=== PATIENT | male | born 1990 | race Caucasian/White ===

== ENCOUNTER 2018-05-10 12:32 | Emergency (ER) | payer SELFPAY ==
[~2018-05-10] VITALS: Ht 180.3 cm; Wt 81.6 kg
[~2018-05-10 12:32] MED LIST: CEPH500C PO; DOXY100T2 PO
--- OUTSIDE RECORDS SUMMARY | 2018-05-10 13:09 | XMS REPORT ---
Author Author NAEEM BANGURA Organization [facility] Address [address] [place] [address] Care Team Providers Care Welder Setter Resistance Machine Name Role Phone NAEEM BANGURA Unavailable PROBLEMS Unknown Problems ALLERGIES No Known Allergies SOCIAL HISTORY Never Assessed PLAN OF CARE Activity Details Follow Up prn Reason: VITAL SIGNS Height 71 in 2016-09-15 Weight 160 lbs 2016-09-15 Temperature 98.3 degrees Fahrenheit 2016-09-15 Heart Rate 84 bpm 2016-09-15 Respiratory Rate 20 2016-09-15 BMI 22.31 kg/m2 2016-09-15 Blood pressure systolic 112 mmHg 2016-09-15 Blood pressure diastolic 72 mmHg 2016-09-15 MEDICATIONS Medication Instructions Dosage Frequency Start Date End Date Duration Status Pulmicort Flexhaler 180 MCG/ACT Inhalation Twice a day 1 puff 12h Sep, Active PredniSONE 50 mg Orally Once a day 1 tablet 24h Sep, Sep, 05 days Active Azithromycin 250 MG Orally Once a day 2 tablets on the first day, then 1 tablet daily for 4 days 24h Sep, Sep, 5 day(s) Active RESULTS No Results PROCEDURES No Known procedures IMMUNIZATIONS No Known Immunizations MEDICAL (GENERAL) HISTORY Type Description Date Medical History Asthma Surgical History Tonsilectomy Surgical History left femur surgery 03/27/2017 Hospitalization History post surgery 03/27/2017
--- OUTSIDE RECORDS SUMMARY | 2018-05-10 13:09 | XMS REPORT | Clinical Summary ---
Demographics Preferred Language Unknown Marital Status Unknown Yarsani Affiliation Unknown Race Unknown Ethnic Group Unknown Author Author [facility] Organization [facility] Address Unknown Phone Unavailable Care Team Providers Care Computer Patternmaker Name Role Phone PP Unavailable Allergies Not on File Current Medications Not on file Active Problems Not on file Social History Tobacco Use Types Packs/Day Years Used Date Never Assessed Sex Assigned at Date Recorded Not on file Plan of Treatment Health Maintenance Due Date Last Done Comments Hepatitis C Screening 1961 DTaP,Tdap,and Td Vaccines 1980 (1 - Tdap) Colon Cancer Screening 2011 Zoster Recombinant 2011 Vaccine (RZV,Shingrix) (1 of 2 - [facility] 2 Dose Standard) Influenza Vaccine (#1) 2018 Results Not on filefrom Last 3 Months
--- OUTSIDE RECORDS SUMMARY | 2018-05-10 13:09 | XMS REPORT ---
Author Author SARAH BETH Organization [facility] Address [address] [place] [address] Care Team Providers Care Machine Sweeper Brush Maker Name Role Phone SARAH BETH Unavailable PROBLEMS Unknown Problems ALLERGIES No Known Allergies ENCOUNTERS Encounter Location Date Diagnosis [facility] [address] [facility] [id number] [address] Apr, Thrush B37.[address] [facility] [address] [facility] [id number] [address] Sep, Asthma exacerbation J45.901 and Acute nasopharyngitis J00 IMMUNIZATIONS No Known Immunizations SOCIAL HISTORY Never Assessed REASON FOR VISIT rash on the roof of his mouth and tongue for 6 days. nausea for 2 days. pt is on new meds post op. [email or web address] PLAN OF CARE VITAL SIGNS Height 71 in 2017-04-09 Weight 157.4 lbs 2017-04-09 Temperature 98.0 degrees Fahrenheit 2017-04-09 Heart Rate 88 bpm 2017-04-09 Respiratory Rate 20 2017-04-09 BMI 21.95 kg/m2 2017-04-09 Blood pressure systolic 110 mmHg 2017-04-09 Blood pressure diastolic 76 mmHg 2017-04-09 MEDICATIONS Medication Instructions Dosage Frequency Start Date End Date Duration Status Cyclobenzaprine HCl 10 MG Orally Three times a day 1 tablet as needed 8h Active Pulmicort Flexhaler 180 MCG/ACT Inhalation Twice a day 1 puff 12h Sep, Active ASA 1 tab Active Nystatin 820255 UNIT/ML Mouth/Throat Four times a day 5 ml 6h Apr, May, 30 day(s) Active Zofran 4 MG Orally 3 times a day 1 tablet 8h Apr, Active Oxycodone-Acetaminophen 5-325 MG Orally every 6 hrs 1 tablet as needed 6h Active Docusate Calcium 240 MG Orally Once a day 1 capsule as needed 24h Active RESULTS No Results PROCEDURES No Known procedures INSTRUCTIONS MEDICATIONS ADMINISTERED No Known Medications MEDICAL (GENERAL) HISTORY Type Description Date Medical History Asthma Surgical History Tonsilectomy Surgical History left femur surgery 03/27/2017 Hospitalization History post surgery 03/27/2017
--- OUTSIDE RECORDS SUMMARY | 2018-05-10 13:09 | XMS REPORT | Continuity of Care Document ---
Demographics x Preferred Language Unknown Marital Status Unknown Yazdanism Affiliation Unknown Race Unknown Ethnic Group Unknown Author Author [facility] Organization [facility] Address Unknown Phone Unavailable Allergies Active Description Code Type Severity Reaction Onset Reported/Identified Relationship to Patient Clinical Status Yes NO KNOWN DRUG ALLERGIES UNKNOWN NO KNOWN DRUG ALLERG Yes No Known Drug Allergies [id number] Drug Allergy Unknown N/A 02/02/2014 Medications Medication Packaging Start Date Stop Date Route Dosage Sig FENTANYL INJ 100 MCG/2CC VIAL MCG 03/26/2017 03/26/2017 ONCE&1255 NORMAL SALINE 1000CC IV BAG INJ 0.9 % (NS 1000CC IV BAG) ml 03/26/2017 03/26/2017 ONCE&1256 FENTANYL INJ 100 MCG/2CC VIAL MCG 03/26/2017 03/26/2017 ONCE&1412 FENTANYL INJ 100 MCG/2CC VIAL MCG 03/26/2017 03/26/2017 ONCE&1432 Problems Date Dx Coded Attending Type Code Diagnosis Diagnosed By 02/02/2014 ORVILLE LOPEZ MD Ot 882.0 OPEN WOUND OF HAND 02/02/2014 ORVILLE LOPEZ MD Ot E019.9 OTHER ACTIVITY INVOLVING ANIMAL CARE 02/02/2014 ORVILLE LOPEZ MD Ot E920.8 ACC-CUTTING INSTRUM NEC 02/02/2014 ORVILLE LOPEZ MD Ot V06.1 [id number], COMBINED [ 01/21/2016 ISAAC ORTIZ APRN Ot J02.9 ACUTE PHARYNGITIS, UNSPECIFIED 01/21/2016 ISAAC ORTIZ APRN Ot R50.9 FEVER, UNSPECIFIED 01/22/2016 ISAAC ORTIZ APRN Ot J02.9 ACUTE PHARYNGITIS, UNSPECIFIED 01/22/2016 ISAAC ORTIZ APRN Ot R50.9 FEVER, UNSPECIFIED 02/06/2016 ISAAC ORTIZ APRN Ot J02.9 ACUTE PHARYNGITIS, UNSPECIFIED 02/06/2016 ISAAC ORTIZ APRN Ot R50.9 FEVER, UNSPECIFIED 01/26/2017 Brooklynn Mcintosh 813.42 OTHER CLOSED FRACTURES OF DISTAL END OF RADIUS (ALONE) 01/26/2017 Brooklynn Mcintosh Mickie S52.502A UNSP FRACTURE OF THE LOWER END OF LEFT RADIUS, INIT 03/26/2017 Isaac Ortiz 820.22 FRACTURE OF SUBTROCHANTERIC SECTION OF FEMUR, CLOSED 03/26/2017 Isaac Ortiz S72.25XA NONDISPLACED SUBTROCHANTERIC FRACTURE OF LEFT FEMUR, INIT Procedures There is no data. Results Test Result Range Comprehensive Metabolic Panel - 03/26/17 12:54 Albumin 4.8 g/dL 3.6-5.1 ALP 68 U/L 35-130 ALT 15 U/L 6-45 Anion Gap 14 6-14 AST 15 U/L 2-40 BUN 18 mg/dL 5-25 Calcium 9.7 mg/dL 8.3-10.4 Chloride 109 mmol/L 95-114 CO2 22 mEq/L 22-33 Creat 1.19 mg/dL 0.50-1.50 eGFR 74 mL/min/1.73m2 >59 Globulin 2.9 g/dL 2.3-3.5 Glucose 85 mg/dL 70-110 Osmo 292 280-295 Potassium 3.9 mmol/L 3.5-5.3 Sodium 141 mmol/L 134-148 TBil 1.3 mg/dL 0.2-1.2 TP 7.7 g/dL 6.0-8.3 Encounters ACCT No. Visit Date/Time Discharge Status Pt. Type Provider Facility Loc./Unit Complaint [id number] 09/29/2013 13:30:00 09/29/2013 16:00:00 DIS Emergency MALCOM UMAÑA [facility] EMR [id number] 09/29/2013 13:40:05 ACT Document Registration [id number] 01/21/2016 19:02:00 01/21/2016 21:28:00 DIS Outpatient ISAAC ORTIZ APRN [facility] [id number] 02/02/2014 22:08:00 02/02/2014 22:36:00 DIS Emergency JOHN MALIK, ORVILLE Morrison [facility] [id number] 03/26/2017 12:37:00 03/26/2017 14:54:00 DIS Outpatient Ortiz, [facility] [id number] 02/18/2017 08:56:00 02/18/2017 23:59:00 DIS Outpatient JOSE REYES [id number] 01/26/2017 00:47:00 01/26/2017 01:41:00 DIS Outpatient Brooklynn Mcintosh [id number] 03/26/2017 12:55:29 Document Registration
--- OUTSIDE RECORDS SUMMARY | 2018-05-10 13:09 | XMS REPORT | CCD ---
Author Author LUZMA MONTANO Organization Unknown Address [address] [facility] [address] [place], [place] [address] Care Team Providers Care Petroleum Products District Supervisor Name Role Phone [facility], LIO DO Attphys [facility], LIO DO Prisurg Vital Signs Unknown or Not Available. Allergies Unknown or Not Available. Procedures Procedure Code Procedure Type Date HAND;MINIMUM 3VWS [id number] SNOMED CT 06/12/2014 History of Immunizations Unknown or Not Available. Problems Unknown or Not Available. Results Unknown or Not Available. Medications Unknown or Not Available. Medications Administered Unknown or Not Available. Encounters Encounter Diagnosis Diagnosis Code Start Date FX LOW RADIUS W ULNA-CL 75263 06/12/2014 Social History Smoking Status Code Start Date End Date Never smoker [id number] Patient Decision Aids Unknown or Not Available. Discharge Instructions You were admitted to [facility] on 06/12/2014 with a principal diagnosis of FX LOW RADIUS W ULNA-CL. You were discharged from [facility] on 06/12/2014. Should you have any questions prior to discharge, please contact a member of your healthcare team. If you have left the hospital and have any questions, please contact your primary care physician. Chief Complaint and Reason For Visit Chief Complaint Date of Onset HAND INJURY Function Status Unknown or Not Available. Referral/Transition of Care Unknown or Not Available.
--- NOTE | 2018-05-10 14:44 | Diagnostic Imaging Report ---
INDICATION: Right shoulder pain post injury. AP, oblique, and transscapular views of the right shoulder are obtained. No fracture or acute bony abnormality is seen. Joint spaces are unremarkable. IMPRESSION: Negative right shoulder. Dictated by: Dictated on workstation # [id number]
--- NOTE | 2018-05-10 15:02 | ED Upper Extremity ---
General Chief Complaint: Upper Extremity Stated Complaint: SHOULDER PAIN Nursing Triage Note: PT AMB TO ROOM 39 W/O DIFFICULTY. A&OX4. CO RT SHOULDER PAIN. 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 REPORTS CANT LIFT IT ABOVE HIS HEAD. LIMITED ROM NOTED. Nursing Sepsis Screen: No Definite Risk Source: patient Exam Limitations: no limitations History of Present Illness Date Seen by Provider: May 10, 2018 Time Seen by Provider: 15:50 Initial Comments Patient is a 28-year-old male who presents to the emergency room with complaints of right shoulder pain. 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 He has full range of motion in the arm but pain with range of motion. Onset: this morning Pain/Injury Location: right shoulder Method of Injury: direct blow Modifying Factors: Worse With Movement Allergies and Home Medications Allergies Coded Allergies: No Known Drug Allergies (Unverified , 02/02/14) Home Medications Doxycycline Hyclate 100 Mg Tablet, 100 MG PO BID Prescribed by: ISAAC EDMONDS on 01/21/16 2102 Hydrocodone Bit/Acetaminophen 1 Tab Tab, 1 EACH PO Q4-6HR PRN for PAIN-MODERATE Prescribed by: VELASQUEZ STEVENSON on 05/10/18 1505 Patient Home Medication List Home Medication List Reviewed: Yes Review of Systems Constitutional: see HPI; No chills, No fever Musculoskeletal: see HPI, joint pain (right shoulder pain) All Other Systems Reviewed Negative Unless Noted: Yes Past Vefajfs-Acwxpx-Xqkpzy Hx Past Med/Social Hx: Reviewed Nursing Past Med/Soc Hx Patient Social History Recent Foreign Travel: No Contact w/Someone Who Travel: No Recent Infectious Disease Expo: No Immunizations Up To Date Tetanus Booster (TDap): More than 5yrs Past Medical History Adenoidectomy, Tonsillectomy Asthma Reproductive Disorders: No Sexually Transmitted Disease: No HIV/AIDS: No Adverse Reaction/Blood Tranf: No Family Medical History Reviewed Nursing Family Hx Physical Exam Vital Signs Vital Signs - First Documented 05/10/18 13:48 Temp 97.1 Pulse 77 Resp 18 B/P (MAP) 141/103 (116) Pulse Ox 100 O2 Delivery Room Air Capillary Refill : Less Than 3 Seconds Height, Weight, BMI Height: 5'11.00" Weight: 180lbs. oz. 81.672068wk; BMI Method:Stated General Appearance: WD/WN, no apparent distress Neck: non-tender, full range of motion, supple, normal inspection Cardiovascular: normal peripheral pulses, regular rate, rhythm, no edema, no gallop, no JVD, no murmur Respiratory: chest non-tender, lungs clear, normal breath sounds, no respiratory distress, no accessory muscle use Shoulder: normal inspection, pain Neurologic/Tendon: normal sensation, normal motor functions, normal tendon functions, responds to pain, no evidence tendon injury, other (normal capillary refill.) Neurologic/Psychiatric: alert, normal mood/affect, oriented x 3 Skin: normal color, warm/dry Progress/Results/Core Measures Results/Orders My Orders Vital Signs/I&O Blood Pressure Mean: 116 Progress Progress Note : Time: 15:00 Progress Note I have seen and evaluated the patient. I have informed him of normal imaging studies. He agrees with plan of care, return precautions were given. Diagnostic Imaging Diagonstic Imaging: Xray Comments NAME: CHRISTOPHER TONY MED REC#: [id number] PHYSICIAN: VELASQUEZ STEVENSON CC: SONIA STEVENSON ROBERT A MD Page 1 of 1 RADIOLOGY REPORT [facility] [place] [place] CC: SONIA STEVENSON ROBERT A MD Page 1 of 1 RADIOLOGY REPORT NAME: CHRISTOPHER TONY MED REC#: [id number] PT STATUS: DEP ER : 1990 PHYSICIAN: VELASQUEZ STEVENSON ADMIT DATE: 05/10/18/ER Signed Date of Exam: 05/10/18 SHOULDER, RIGHT, 3 VIEWS INDICATION: Right shoulder pain post injury. AP, oblique, and transscapular views of the right shoulder are obtained. No fracture or acute bony abnormality is seen. Joint spaces are unremarkable. IMPRESSION: Negative right shoulder. Dictated by: Dictated on workstation # [id number] Dict: 05/10/18 1442 Trans: 05/10/18 1620 Interpreted by: UBALDO WOLF MD Electronically signed by: UBALDO WOLF MD 05/10/18 1620 Reviewed: Reviewed by Me Departure Impression Primary Impression: Right shoulder strain Disposition: 01 HOME, SELF-CARE Condition: Stable/Unchanged Departure-Patient Inst. Decision time for Depature: 15:03 Referrals: MARU PUENTE MD NO,LOCAL PHYSICIAN (PCP) Primary Care Physician Patient Instructions: How to Use a Shoulder Sling, LOCAL PHYSICIAN LIST, Shoulder Sprain Add. Discharge Instructions: Take medication as directed. Rest, elevate the arm as much as possible, ice to the sore areas a 20 minute intervals. You may use ibuprofen for additional pain relief as directed by the bottle. Follow-up with a primary care provider or an orthopedic surgeon within 1 week for recheck. Return back to the emergency room for any worsening symptoms or concerns as needed. All discharge instructions reviewed with patient and/or family. Voiced understanding. Scripts Hydrocodone Bit/Acetaminophen (Hydrocodone/Acetaminophen 5/325mg Tablet) 1 Tab Tab 1 EACH PO Q4-6HR PRN for PAIN-MODERATE MDD 10, #10 TAB Prov: VELASQUEZ STEVENSON 05/10/18 VELASQUEZ STEVENSON May 10, 2018 15:02
[2018-05-10] MEDS ORDERED: ACHD5005 PO (15:05)
[2018-05-10] MEDS ORDERED: HYDROcodone/APAP 5 MG/325 MG (LORTAB) TAB PO ONE (15:15)
[2018-05-10 15:23] VITALS: BP 130/87
== END 2018-05-10 15:21 | disposition home or self-care (01) ==
LOC: EDUNIT# 12:32 → ER 12:33
DX: S46.911A Strain of unspecified muscle, fascia and tendon at shoulder and upper arm level, right arm, initial encounter (principal); J45.909 Unspecified asthma, uncomplicated; Z90.89 Acquired absence of other organs; W23.1XXA Caught, crushed, jammed, or pinched between stationary objects, initial encounter
CPT/HCPCS: 73030

== ENCOUNTER 2018-08-08 14:49 | Emergency (ER) | payer SELFPAY ==
[~2018-08-08] VITALS: Ht 180.3 cm; Wt 68.0 kg
[~2018-08-08 14:49] MED LIST changes: +ACHD5005 PO
--- OUTSIDE RECORDS SUMMARY | 2018-08-08 14:55 | XMS REPORT | Continuity of Care Document ---
Demographics x Preferred Language Unknown Marital Status Unknown Catholic Affiliation Unknown Race Unknown Ethnic Group Unknown Author Author [facility] Organization [facility] Address Unknown Phone Unavailable Allergies Active Description Code Type Severity Reaction Onset Reported/Identified Relationship to Patient Clinical Status Yes NO KNOWN DRUG ALLERGIES UNKNOWN NO KNOWN DRUG ALLERG Yes No Known Drug Allergies [id number] Drug Allergy Unknown N/A 02/02/2014 Medications Medication [...] NEC 02/02/2014 ORVILLE LOPEZ MD Ot V06.1 [id number], COMBINED [ 01/21/2016 ISAAC ORTIZ APRN Ot [...] NONDISPLACED SUBTROCHANTERIC FRACTURE OF LEFT FEMUR, INIT 05/12/2018 VELASQUEZ STEVENSON Ot J45.909 UNSPECIFIED ASTHMA, UNCOMPLICATED 05/12/2018 VELASQUEZ STEVENSON Ot M25.511 PAIN IN RIGHT SHOULDER 05/12/2018 VELASQUEZ STEVENSON Ot S46.911A STRAIN UNSP MUSC/FASC/TEND AT SHLDR/UP A 05/12/2018 VELASQUEZ STEVENSON Ot W23.1XXA CAUGHT, CRUSH, JAMMED, OR PINCHED BETW S 05/12/2018 VELASQUEZ STEVENSON Ot Z90.89 ACQUIRED ABSENCE OF OTHER ORGANS Procedures There is no data. Results Test [...] Status Pt. Type Provider Facility Loc./Unit Complaint [id number] 09/29/2013 13:30:00 09/29/2013 16:00:00 DIS Emergency MALCOM UMAÑA [facility] EMR [id number] 09/29/2013 13:40:05 ACT Document Registration [id number] 05/10/2018 12:33:00 05/10/2018 15:21:00 DIS Outpatient VELASQUEZ STEVENSON Via [facility] ER SHOULDER PAIN [id number] 01/21/2016 19:02:00 01/21/2016 21:28:00 DIS Emergency ISAAC ORTIZ APRN [facility] ER VOMITTING/FEVER/STOMACH PAIN [id number] 02/02/2014 22:08:00 02/02/2014 22:36:00 DIS Emergency ORVILLE LOPEZ MD Via [facility] ER LEFT HAND LAC [id number] 03/26/2017 12:37:00 03/26/2017 14:54:00 DIS Outpatient Isaac Ortiz [facility] ER [id number] 02/18/2017 08:56:00 02/18/2017 23:59:00 DIS Outpatient JOSE REYES [id number] 01/26/2017 00:47:00 01/26/2017 01:41:00 DIS Outpatient Brooklynn Mcintosh [id number] 03/26/2017 12:55:29 Document Registration
--- OUTSIDE RECORDS SUMMARY | 2018-08-08 14:55 | XMS REPORT | Clinical Summary ---
Demographics Preferred Language Unknown Marital Status Unknown Mu-Ism Affiliation Unknown Race Unknown Ethnic Group Unknown Author Author [facility] Organization [facility] Address Unknown Phone Unavailable Care Team Providers Care Rollway Man Name Role Phone PP Unavailable Allergies Not [...] 2011 Vaccine (RZV,Shingrix) (1 of 2 - [facility] 2 Dose Standard) Influenza Vaccine (#1) 2018 Results Not on filefrom Last 3 Months
--- NOTE | 2018-08-08 15:22 | ED EENT ---
History of Present Illness General Chief Complaint: Dental Problems/Pain Stated Complaint: DENTAL PAIN,EAR PAIN Nursing Triage Note: PT PRESENTS FROM HOME WITH COMPLAINTS OF R SIDED DENTAL PAIN X 2 DAYS. PT REPORTS R SIDED JAW AND EAR PAIN STARTING TODAY. Source: patient Exam Limitations: no limitations History of Present Illness Date Seen by Provider: Aug 08, 2018 Time Seen by Provider: 15:22 Initial Comments 28-year-old male patient presents to the emergency department complains of right -sided dental pain for 2 days. Patient reports pain now radiating into the right ear. states he was supposed to have the tooth pulled about a week ago, but had strep throat and wasn't able to go to the appointment. Denies difficulty swallowing or breathing. Timing/Duration: other (2 day onset) Location: ear (R), dental (right lower) Prearrival Treatment: no prearrival treatment Presenting Symptoms/Injuries: rt lower dental pain Modifying Factors: Worse With Other (worse with palpation and chewing) Allergies and Home Medications Allergies Coded Allergies: No Known Drug Allergies (Unverified , 02/02/14) Home Medications Amoxicillin 500 Mg Capsule, 1,000 MG PO BID Prescribed by: RUFINO WILKS on 08/08/18 1544 Patient Home Medication List Home Medication List Reviewed: Yes Review of Systems Review of Systems Constitutional: No chills, No fever, No malaise Eyes: No Symptoms Reported Ears: See HPI, Pain (right ear pain); Denies Tinnitus, Denies Other (denies drainage) Nose: no symptoms reported Mouth: see HPI, pain (rt lower dental pain), swelling (swelling of the rt lower gums) Throat: no symptoms reported Respiratory: no symptoms reported Cardiovascular: no symptoms reported Skin: no symptoms reported Neurological: Denies Headache All Other Systems Reviewed Negative Unless Noted: Yes (Negative excepted noted.) Past Zlqbofl-Spgzym-Utkvjl Hx Past Med/Social Hx: Reviewed Nursing Past Med/Soc Hx Patient Social History Alcohol Use: Denies Use Recreational Drug Use: No Smoking Status: Never a Smoker 2nd Hand Smoke Exposure: No Recent Foreign Travel: No Contact w/Someone Who Travel: No Recent Infectious Disease Expo: No Recent Hopitalizations: No Physical Abuse: No Sexual Abuse: No Mistreated: No Fear: No Immunizations Up To Date Tetanus Booster (TDap): More than 5yrs Seasonal Allergies Seasonal Allergies: No Past Medical History Surgeries: Yes (L HIP) Adenoidectomy, Orthopedic, Tonsillectomy Respiratory: Yes Asthma Cardiac: No Neurological: No Reproductive Disorders: No Sexually Transmitted Disease: No HIV/AIDS: No Genitourinary: No Gastrointestinal: No Musculoskeletal: No Endocrine: No HEENT: No Cancer: No Psychosocial: No Integumentary: No Blood Disorders: No Adverse Reaction/Blood Tranf: No Family Medical History Reviewed Nursing Family Hx No Pertinent Family Hx Physical Exam Vital Signs Vital Signs - First Documented 08/08/18 15:02 Temp 97.1 Pulse 74 Resp 18 B/P (MAP) 141/84 (103) Pulse Ox 99 Height, Weight, BMI Height: 5'11.00" Weight: 150lbs. oz. 68.885323gp; BMI Method:Stated General Appearance: WD/WN, no apparent distress Eyes: bilateral eye normal inspection, bilateral eye PERRL, bilateral eye EOMI Ears: bilateral ear auricle normal, bilateral ear canal normal, bilateral ear TM normal Nose: normal inspection Mouth/Throat: pharynx normal, dental tenderness (rt lower molar (#32) tenderness with minimal swelling to the gums surrounding the tooth. a large dental manny is noted.); No excessive drooling, No mandibular swelling, No maxillary swelling Neck: non-tender, supple, normal inspection Cardiovascular: regular rate, rhythm, no murmur Respiratory: lungs clear, normal breath sounds, no respiratory distress, no accessory muscle use Neurologic/Psychiatric: alert, normal mood/affect, oriented x 3 Skin: normal color, warm/dry Progress/Results/Core Measures Results/Orders My Orders Orders - RUFINO WILKS Lidocaine 2% Viscous 15 Ml (Xylocaine Vi (08/08/18 15:45) Benzocaine Extension Tube (Hurricaine Ex (08/08/18 15:45) Ibuprofen Tablet (Motrin Tablet) (08/08/18 15:45) Amoxicillin/Clavulanate Tablet (Augmenti (08/08/18 15:45) Medications Given in ED Current Medications Medications Dose Ordered Sig/Marianna Route Start Time Stop Time Status Last Admin Dose Admin Amoxicillin/ Clavulanate Potassium 875 mg ONCE ONCE PO 08/08/18 15:45 08/08/18 15:46 DC 08/08/18 15:56 875 MG Benzocaine 1 ea ONCE ONCE XX 08/08/18 15:45 1/1/19 15:46 DC 08/08/18 15:57 1 EA Ibuprofen 800 mg ONCE ONCE PO 08/08/18 15:45 08/08/18 15:46 DC 08/08/18 15:56 800 MG Lidocaine HCl 15 ml ONCE ONCE PO 08/08/18 15:45 08/08/18 15:46 DC 08/08/18 15:57 15 ML Vital Signs/I&O 08/08/18 15:02 Temp 97.1 Pulse 74 Resp 18 B/P (MAP) 141/84 (103) Pulse Ox 99 Blood Pressure Mean: 103 Departure Impression Primary Impression: Dental caries Disposition: HOME, SELF-CARE Condition: Improved Departure-Patient Inst. Decision time for Depature: 15:39 Referrals: NO,LOCAL PHYSICIAN (PCP) Primary Care Physician DENTAL GROUP Patient Instructions: Dental Pain (DC), Tooth Decay, Adult (DC) Add. Discharge Instructions: All discharge instructions reviewed with patient and/or family. Voiced understanding. Medications as instructed. Tylenol Extra Strength over-the- counter as directed for pain. Ibuprofen 800 mg by mouth every 8 hours as needed for pain. Eat and drink room temperature foods/fluids. He may use an ice pack or heating pack if needed for pain. Follow-up with your dentist for dental repair and recheck as an outpatient. Call for appointment time. Return in the emergency department for worsened symptoms or any other concerns. Lidocaine/benzocaine gauze pads: place 1 pad between the affected teeth. Bite down gently for 5-10 minutes and remove the gauze. You may repeat this process up to 4 times daily as needed for dental pain. DO NOT FALL ASLEEP WITH THE GAUZE IN YOUR MOUTH; DO NOT SWALLOW THE GAUZE; AND DO NOT LAY DOWN WITH THE GAUZE IN YOUR MOUTH DUE TO RISK OF CHOKING, BOWEL OBSTRUCTION, AND . Scripts Amoxicillin (Amoxicillin) 500 Mg Capsule 1000 MG PO BID, #28 CAP 0 Refills Prov: RUFINO WILKS 08/08/18 Images Mouth/Nose 1 - Caries, Swelling, Tenderness RUFINO WILKS Aug 08, 2018 15:22
[2018-08-08] MEDS ORDERED: AMOX500C2 PO (15:44)
[2018-08-08] MEDS ORDERED: HURRICAINE EXT TUBE (BENZOCAINE) XX ONE (15:45)
[2018-08-08] MEDS ORDERED: IBUPROFEN 800 MG (MOTRIN) TAB PO ONE (15:45)
[2018-08-08] MEDS ORDERED: LIDOCAINE 2% VISCOUS 15 ML UDC PO ONE (15:45)
[2018-08-08] MEDS ORDERED: AUGMENTIN 875 MG TAB (AMOXICILLIN/CLAVULANATE) PO ONE (15:45)
[2018-08-08 16:10] VITALS: BP 140/71
== END 2018-08-08 16:10 | disposition home or self-care (01) ==
LOC: EDUNIT# 14:49 → ER 14:50
DX: K02.9 Dental caries, unspecified (principal); J45.909 Unspecified asthma, uncomplicated; Z90.89 Acquired absence of other organs
CPT/HCPCS: 99283

== ENCOUNTER 2019-09-20 01:21 | Emergency (ER) | payer SELFPAY ==
[~2019-09-20] VITALS: Ht 180 cm; Wt 82.7 kg
[~2019-09-20 01:21] MED LIST changes: +AMOX500C2 PO
[2019-09-20] MEDS ORDERED: IBUPROFEN 800 MG (MOTRIN) TAB PO STA (01:55)
--- NOTE | 2019-09-20 02:24 | ED Cough/URI ---
General Chief Complaint: Cough/Cold/Flu Symptoms Stated Complaint: COLD,COUGH,DIARRHEA,FREEZING COLD & SHAKING Nursing Triage Note: nasal congestion, fever, chills, cough since tuesday, diarrhea tonight. Sepsis Screen: Possible Severe Sepsis Risk Source: patient Exam Limitations: no limitations History of Present Illness Date Seen by Provider: Sep 20, 2019 Time Seen by Provider: 02:06 Initial Comments Here with fevers, chills, cough and diarrhea. Onset on Tuesday with the fever. He has been using [id number] cough medicine that it's helped some but it worsened this morning. 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 He is drinking and eating okay. Reports that he typically has diarrhea often especially with any illness. Timing/Duration: getting worse, other (3-4 days) Severity/Quality: moderate, dry cough Prior Episodes/Possible Cause: occasional episodes Modifying Factors: Worse With Coughing Associated Symptoms: cough, fever/chills, muscle aches, nasal congestion, nasal drainage, shortness of breath, wheezing Allergies and Home Medications Allergies Coded Allergies: No Known Drug Allergies (Unverified , 02/02/14) Home Medications No Active Prescriptions or Reported Meds Patient Home Medication List Home Medication List Reviewed: Yes Review of Systems Review of Systems Constitutional: see HPI, chills, fever EENTM: see HPI Respiratory: see HPI Cardiovascular: no symptoms reported Gastrointestinal: No abdominal pain; diarrhea All Other Systems Reviewed Negative Unless Noted: Yes Past Kkontbb-Rownws-Syropc Hx Past Med/Social Hx: Reviewed Nursing Past Med/Soc Hx Patient Social History Alcohol Use: Denies Use Recreational Drug Use: No Smoking Status: Never a Smoker 2nd Hand Smoke Exposure: No Recent Foreign Travel: No Contact w/Someone Who Travel: No Recent Infectious Disease Expo: No Recent Hopitalizations: No Physical Abuse: No Sexual Abuse: No Mistreated: No Fear: No Immunizations Up To Date Tetanus Booster (TDap): More than 5yrs Seasonal Allergies Seasonal Allergies: No Past Medical History Surgeries: Yes (L HIP, bmt) Adenoidectomy, Orthopedic, Tonsillectomy Respiratory: Yes Asthma Cardiac: No Neurological: No Reproductive Disorders: No Sexually Transmitted Disease: No HIV/AIDS: No Genitourinary: No Gastrointestinal: No Musculoskeletal: No Endocrine: No HEENT: No Cancer: No Psychosocial: No Integumentary: No Blood Disorders: No Adverse Reaction/Blood Tranf: No Family Medical History Reviewed Nursing Family Hx No Pertinent Family Hx Physical Exam Vital Signs - First Documented 09/20/19 01:47 Temp 38.6 Pulse 98 Resp 18 B/P (MAP) 146/88 (107) Pulse Ox 97 O2 Delivery Room Air Capillary Refill : Less Than 3 Seconds Height: 5'11.00" Weight: 150lbs. oz. 68.015738os; 25.00 BMI Method:Stated General Appearance: WD/WN, no apparent distress HEENT: pharyngeal erythema, other (bilateral nasal congestion) Neck: full range of motion, supple Respiratory: lungs clear, normal breath sounds Cardiovascular: regular rate, rhythm, no murmur Gastrointestinal: normal bowel sounds, non tender, soft, no organomegaly, no pulsatile mass Neurologic/Psychiatric: alert, oriented x 3 Progress/Results/Core Measures Suspected Sepsis Recent Fever Within 48 Hours: Yes Infection Criteria Present: Suspected New Infection New/Unexplained Altered Menta: No Sepsis Screen: Possible Severe Sepsis Risk SIRS Temperature: Pulse: 98 Respiratory Rate: 18 Blood Pressure 146 /88 Mean: 107 Results/Orders Micro Results Microbiology 09/20/19 Influenza Types A,B Antigen (DIALLO) - Final, Complete My Orders Orders - ORVILLE LOPEZ MD Influenza A And B Antigens (09/20/19 01:54) Ibuprofen Tablet (Motrin Tablet) (09/20/19 01:55) Vital Signs/I&O 09/20/19 09/20/19 09/20/19 01:47 01:47 02:04 Temp 38.6 38.6 Pulse 98 Resp 18 B/P (MAP) 146/88 (107) Pulse Ox 97 O2 Delivery Room Air Room Air Capillary Refill : Less Than 3 Seconds Blood Pressure Mean: 107 Progress Note : Progress Note Seen and evaluated. Ibuprofen 800 mg by mouth. Influenza screen ordered. Monitor patient. 0220: Influenza be positive. Patient is outside of window for Tamiflu per CDC guidelines. Supportive care indicated. This was discussed with the patient. Discharged home with return precautions. Patient verbalize understanding instructions and agreement with plan. Departure Impression Primary Impression: Influenza B Disposition: 01 HOME, SELF-CARE Condition: Stable Departure-Patient Inst. Decision time for Depature: 02:24 Referrals: [facility] (PCP/Family) Primary Care Physician Patient Instructions: Flu, Adult (DC) Add. Discharge Instructions: All discharge instructions reviewed with patient and/or family. Voiced understanding. You may take Tylenol/acetaminophen 1000 mg every 8 hours as needed for fever or pain. Do not take with the [id number] cold or flu medicine as they both may have acetaminophen in them. You may take ibuprofen 800 mg every 8 hours as needed for fever or pain. You may use Afrin nasal spray or the generic, 12 hour relief, 2 sprays to each nostril twice daily for 3 days only and then stop. Do not use more than 3 days. Follow-up with your Dr. in a few days for recheck. Drink plenty of fluids. Return for worse pain, fever, vomiting, weakness, breathing problems or other concerns as needed. Scripts No Active Prescriptions or Reported Meds Work/School Note: Work Release Form Date Seen in the Emergency Department: Sep 20, 2019 Return to Work: Sep 22, 2019 Restrictions: No Restrictions ORVILLE LOPEZ MD Sep 20, 2019 02:24
[2019-09-20 02:36] VITALS: BP 141/81
== END 2019-09-20 02:37 | disposition home or self-care (01) ==
LOC: EDUNIT# 01:21 → ER 01:25
DX: J10.1 Influenza due to other identified influenza virus with other respiratory manifestations (principal); Z87.09 Personal history of other diseases of the respiratory system
CPT/HCPCS: 87804

== ENCOUNTER 2020-09-28 19:33 | Emergency (ER) | payer SELFPAY ==
[~2020-09-28] VITALS: Ht 180 cm; Wt 65.0 kg
[2020-09-28 19:48] VITALS: BP 115/80
--- NOTE | 2020-09-28 20:10 | ED General ---
General Chief Complaint: Exposure Stated Complaint: BI LATERAL FEET COLD TO TOUCH,PURPLE Nursing Triage Note: c/o bilateral feet pain possible frostbite. Nursing Sepsis Screen: No Definite Risk Source of Information: Patient Exam Limitations: No Limitations History of Present Illness Date Seen by Provider: Sep 28, 2020 Time Seen by Provider: 19:55 Initial Comments Patient is a 30-year-old male who presents to the emergency department today with a chief complaint of bilateral foot pain. Patient states that he was wearing boots over the course of the severely cold weather in the last 10 days and started having heel pain as well as forefoot pain, discomfort paresthesia and redness. Patient states that he used a little zkrb-[id number]-[id number] athlete's foot spray to try and alleviate the discomfort and he states this worked for about 10 minutes but then the burning discomfort came back. Patient states that he feels like the lateral aspect of both feet is "numb". He states it is very painful to walk. Patient states that he is concerned because his feet have been seeming to swell up a little bit. Especially his posterior ankles bilaterally. Patient denies any constitutional symptoms of illness no fever, chills, cough, congestion or GI or complaints. All other review of systems reviewed and negative except as stated. Timing/Duration: 1 Week Severity: Moderate Allergies and Home Medications Allergies Coded Allergies: No Known Drug Allergies (Unverified , 02/02/14) Home Medications No Active Prescriptions or Reported Meds Patient Home Medication List Home Medication List Reviewed: Yes Review of Systems Review of Systems Constitutional: see HPI EENTM: no symptoms reported Respiratory: no symptoms reported Cardiovascular: no symptoms reported Gastrointestinal: no symptoms reported Musculoskeletal: joint pain (Bilateral foot pain) Skin: change in color (Bright red discoloration to the fourth and fifth toes on bilateral feet) Psychiatric/Neurological: Paresthesia All Other Systems Reviewed Negative Unless Noted: Yes Past Ijfngkg-Mcradu-Puslbz Hx Patient Social History Alcohol Use: Denies Use Smoking Status: Never a Smoker 2nd Hand Smoke Exposure: No Recent Infectious Disease Expo: No Recent Hopitalizations: No Immunizations Up To Date Tetanus Booster (TDap): More than 5yrs Seasonal Allergies Seasonal Allergies: No Past Medical History Surgeries: Yes (L HIP, bmt) Adenoidectomy, Orthopedic, Tonsillectomy Respiratory: Yes Asthma Cardiac: No Neurological: No Reproductive Disorders: No Sexually Transmitted Disease: No HIV/AIDS: No Genitourinary: No Gastrointestinal: No Musculoskeletal: No Endocrine: No HEENT: No Cancer: No Psychosocial: No Integumentary: No Blood Disorders: No Adverse Reaction/Blood Tranf: No Family Medical History No Pertinent Family Hx Physical Exam Vital Signs Vital Signs - First Documented 09/28/20 19:48 Temp 36.5 Pulse 90 Resp 18 B/P (MAP) 115/80 (92) Pulse Ox 99 O2 Delivery Room Air Capillary Refill : Less Than 3 Seconds Height, Weight, BMI Height: 5'11.00" Weight: 150lbs. oz. [id number]; 20.00 BMI Method:Stated General Appearance: No Apparent Distress, WD/WN Respiratory: Lungs Clear, Normal Breath Sounds, No Accessory Muscle Use, No Respiratory Distress Cardiovascular: Regular Rate, Rhythm Extremity: Normal Inspection, Normal Range of Motion, Other (Tenderness to palpation over the lateral aspect of both feet as well as the posterior heels of both feet; patient has prominence at the Achilles tendon inserts of both heels. This is also very tender and inflamed) Neurologic/Psychiatric: Alert, Oriented x3, No Motor/Sensory Deficits, Normal Mood/Affect, Sensory Deficit (Paresthesia over the lateral aspects of both feet and across the tips of all of his toes) Skin: Normal Color, Warm/Dry Progress/Results/Core Measures Suspected Sepsis Recent Fever Within 48 Hours: No Infection Criteria Present: None New/Unexplained Altered Menta: No Sepsis Screen: No Definite Risk SIRS Temperature: Pulse: 90 Respiratory Rate: 18 Blood Pressure 115 /80 Mean: 92 Results/Orders Vital Signs/I&O 09/28/20 19:48 Temp 36.5 Pulse 90 Resp 18 B/P (MAP) 115/80 (92) Pulse Ox 99 O2 Delivery Room Air Capillary Refill : Less Than 3 Seconds Blood Pressure Mean: 92 Progress Note : Time: 20:38 Progress Note 30-year-old male presents to the emergency department today with a chief complaint of bilateral foot pain and paresthesias. Evaluation today includes a physical exam. Patient is treated in the emergency department with 40 mg of prednisone p.o. He is given a prescription for 40 mg of prednisone for the next 5 days. He is also started on a course of gabapentin. He will start 300 mg once a day for the first day, increase to twice daily on the second day then 3 times a day over the course of 2 weeks and then a taper. Patient is comfortable with this plan of care. He is advised to follow-up with [facility] next week. He verbalized understanding. All questions are sought and answered. Patient is stable for discharge. Departure Impression Primary Impression: Paresthesia Disposition: 01 HOME, SELF-CARE Condition: Stable Departure-Patient Inst. Decision time for Depature: 20:29 Referrals: [facility] (PCP/Family) Primary Care Physician Patient Instructions: Paresthesia (DC) Add. Discharge Instructions: Take the prednisone daily for 5 days. Start the Gabapentin one pill on day 1, one pill twice a day on the second day, then increase to 3 times a day for 2 weeks. Taper off this medication after two weeks over the course of 7 days. Please call and follow up with [facility] next week. Return to the Emergency Department for any worsening pain, fever, swelling or other emergent concerning symptoms. Scripts Gabapentin (Neurontin) 300 Mg Capsule 300 MG PO TID, #60 CAP take 1 pill day one, twice daily on day 2 and then 3 times a day; taper off this medication over 7 days after 2 weeks Prov: LUCRECIA SQUIRES MD 09/28/20 Prednisone (Prednisone) 20 Mg Tab 40 MG PO DAILY, #10 TAB Prov: LUCRECIA SQUIRES MD 09/28/20 LUCRECIA SQUIRES MD Sep 28, 2020 20:10
[2020-09-28] MEDS ORDERED: GABA300C PO (20:35)
[2020-09-28] MEDS ORDERED: PRD20T PO (20:35)
[2020-09-28] MEDS ORDERED: predniSONE 20 MG TAB PO ONE (20:45)
== END 2020-09-28 20:48 | disposition home or self-care (01) ==
LOC: EDUNIT# 19:33 → ER 19:35
DX: R20.2 Paresthesia of skin (principal)
CPT/HCPCS: 99283